=== PATIENT | male | born 1955 | race Caucasian/White ===

== ENCOUNTER 2018-06-22 03:12 | Emergency (ER) | payer OTHER ==
[~2018-06-22] VITALS: Ht 177.8 cm; Wt 117.0 kg
[2018-06-22 03:12] VITALS: BP_SYST 147
--- NOTE | 2018-06-22 03:12 | NUR ---
Patient to ER bed 04 to gown for evaluation. Side rails up.
--- NOTE | 2018-06-22 03:14 | NUR ---
Patient AOx4, presents to ER via ambulance BLS from [facility] for complaint of neck and low back pain 7 x several months. Patient states that the pain was worsend the past few days. Patient states hx of many back surgeries. Denies any recent injury to site. Patient states that Tramadol and Flexeril are medications that he has taken in the past and are effective. No other symptoms or complaints.
--- NOTE | 2018-06-22 03:15 | NUR ---
ER MD Del Real at bedside for medical evaluation.
--- NOTE | 2018-06-22 03:35 | NUR ---
# 22 gauge angiocath placed to NILESH. Use of asceptic technique. Opsite placed over site. Blood return noted. Blood for lab drawn from site. Flushed with 10 cc of normal saline. No evidence of infiltration noted. Patient tolerated well.
[2018-06-22 04:00] LABS: BASOPHILS # (AUTO) 0.1 K/uL (0.0-0.2); BASOPHILS % (AUTO) 0.9 % (0.0-2.0); EOSINOPHILS # (AUTO) 0.2 K/uL (0.0-0.4); EOSINOPHILS % (AUTO) 2.5 % (0.0-4.0); HEMATOCRIT 46.3 % (36-54); HEMOGLOBIN 15.1 g/dL (14.0-18.0); LYMPHOCYTES # (AUTO) 1.7 K/uL (1.0-5.5); LYMPHOCYTES % (AUTO) 18.6 % (20.5-51.5); MEAN CORPUSCULAR HEMOGLOBIN 31 pg (27-31); MEAN CORPUSCULAR HGB CONC 33 % (32-36); MEAN CORPUSCULAR VOLUME 94 fL (79.0-98.0); MONOCYTES # (AUTO) 0.7 K/uL (0.0-1.0); MONOCYTES % (AUTO) 7.2 % (1.7-9.3); NEUTROPHILS # (AUTO) 6.6 K/uL (1.8-7.7); NEUTROPHILS % (AUTO) 70.8 % (40.0-70.0); PLATELET COUNT (AUTO) 254 K/uL (130-430); RED BLOOD CELL COUNT(AUTO) 4.91 MIL/uL (4.2-6.2); RED CELL DISTRIBUTION WIDTH 13.5 % (9.0-15.0); WHITE BLOOD COUNT (AUTO) 9.3 K/uL (4.8-10.8)
[2018-06-22 04:18] LABS: CALCIUM 9.4 mg/dL (8.4-11.0); CREATININE 1.05 mg/dL (0.55-1.30); POTASSIUM 3.8 mmol/L (3.5-5.1)
[2018-06-22] MEDS: KETOROLAC TROMETHAMINE 30 MG VIAL IVP ONE (04:20)
[2018-06-22 04:22] LABS: ALBUMIN 3.4 g/dL (3.4-4.8); TOTAL BILIRUBIN 0.4 mg/dL (0.0-1.0)
[2018-06-22] MEDS: NACL 0.9% 1,000 ML IV ONE (04:22)
--- NOTE | 2018-06-22 05:00 | NUR ---
No adverse reactions noted after medication administration. Will continue to monitor.
[2018-06-22 05:54] VITALS: BP_SYST 140
--- NOTE | 2018-06-22 05:54 | NUR ---
Patient given written and verbal discharge instructions and verbalizes understanding. ER MD discussed with patient the results and treatment provided. Patient in stable condition. ID arm band removed. IV catheter removed intact and dressing applied, no active bleeding. Rx of Tramadol given. Patient educated on pain management and to follow up with PMD. Pain Scale 2/10 tolerable to patient. Opportunity for questions provided and answered. Medication side effect fact sheet provided.
== END 2018-06-22 05:54 | disposition home or self-care (01) ==
LOC: SED 03:12
DX: G89.29 Other chronic pain (principal); M54.2 Cervicalgia; M54.5 Low back pain; E11.9 Type 2 diabetes mellitus without complications; I10 Essential (primary) hypertension; Z88.5 Allergy status to narcotic agent
CPT/HCPCS: 36415; 71045; 72040; 72100; 80053; 82550; 83690; 85025; 96374; 99284; J1885; J7030

== ENCOUNTER 2020-09-18 07:32 | Inpatient (IN) | payer OTHER, MEDICAID ==
[~2020-09-18] VITALS: Ht 177.8 cm; Wt 112.0 kg
[2020-09-18] MEDS ORDERED: ASPIRIN 81 MG TAB.CHEW PO ONE (07:45)
[2020-09-18 07:48] VITALS: BP_SYST 158
[2020-09-18 07:53] LABS: BASOPHILS # (AUTO) 0.1 K/uL (0.0-0.2); BASOPHILS % (AUTO) 0.6 % (0.0-2.0); EOSINOPHILS # (AUTO) 0.3 K/uL (0.0-0.4); EOSINOPHILS % (AUTO) 3.2 % (0.0-4.0); HEMATOCRIT 43.4 % (36-54); HEMOGLOBIN 14.4 g/dL (14.0-18.0); LYMPHOCYTES # (AUTO) 1.8 K/uL (1.0-5.5); LYMPHOCYTES % (AUTO) 19.9 % (20.5-51.5); MEAN CORPUSCULAR HEMOGLOBIN 32 pg (27-31); MEAN CORPUSCULAR HGB CONC 33 % (32-36); MEAN CORPUSCULAR VOLUME 97 fL (79.0-98.0); MONOCYTES # (AUTO) 0.4 K/uL (0.0-1.0); MONOCYTES % (AUTO) 4.7 % (1.7-9.3); NEUTROPHILS # (AUTO) 6.5 K/uL (1.8-7.7); NEUTROPHILS % (AUTO) 71.6 % (40.0-70.0); PLATELET COUNT (AUTO) 258 K/uL (130-430); RED BLOOD CELL COUNT(AUTO) 4.48 MIL/uL (4.2-6.2); WHITE BLOOD COUNT (AUTO) 9.1 K/uL (4.8-10.8)
[2020-09-18] MEDS ORDERED: MAG HYDROX/AL HYDROX/SIMETH 30 ML, LIDOCAINE VISCOUS 2% 15ML (PO) 15 ML, DICYCLOMINE HC... PO ONE ×3 (08:00)
[2020-09-18 08:10] LABS: CALCIUM 8.9 mg/dL (8.4-11.0); CREATININE 0.81 mg/dL (0.55-1.30); POTASSIUM 5.2 mmol/L (3.5-5.1)
[2020-09-18] MEDS ORDERED: MELA10TA PO (08:12)
[2020-09-18] MEDS ORDERED: MONT10TA33 PO (08:12)
[2020-09-18] MEDS ORDERED: SOTA80TA PO (08:12)
[2020-09-18] MEDS ORDERED: LORA10TA7 PO (08:12)
[2020-09-18] MEDS ORDERED: OLME20TA13 PO (08:12)
[2020-09-18] MEDS ORDERED: LIP20 PO (08:12)
[2020-09-18] MEDS ORDERED: GABA-529 PO (08:12)
[2020-09-18 08:16] LABS: ALBUMIN 3.1 g/dL (3.4-4.8); TOTAL BILIRUBIN 0.3 mg/dL (0.0-1.0)
[2020-09-18] MEDS ORDERED: ASPIRIN 81 MG TAB.CHEW ONE (08:21)
[2020-09-18] MEDS ORDERED: DEXTROSE 50% JECT 50 ML DISP.SYRIN IVP ONE (08:45)
[2020-09-18] MEDS ORDERED: CALCIUM GLUCONATE 1 GM/10 ML VIAL IVP ONE (08:45)
[2020-09-18] MEDS ORDERED: INSULIN REGULAR, HUMAN 10 UNITS/0.1 ML INJ IVP ONE (08:45)
[2020-09-18] MEDS ORDERED: NS 500 ML IV ONE (08:45)
[2020-09-18] MEDS ORDERED: SODIUM POLYSTYRENE SULFONATE 15 GM/60 ML UDBTL PO ONE (08:45)
[2020-09-18] MEDS ORDERED: ZOLPIDEM TARTRATE 5 MG TABLET PO PRN (10:00)
[2020-09-18] MEDS ORDERED: CLOPIDOGREL BISULFATE 75 MG TABLET PO ONE (10:00)
[2020-09-18] MEDS ORDERED: LORazepam 2 MG/ML VIAL IVP PRN (10:00)
[2020-09-18] MEDS ORDERED: ACETAMINOPHEN 325 MG TABLET PO PRN (10:00)
[2020-09-18] MEDS ORDERED: NITROGLYCERIN 0.4 MG TAB.SUBL SL PRN (10:00)
[2020-09-18] MEDS ORDERED: ASPIRIN 81 MG TAB.CHEW PO SCH (10:00)
[2020-09-18 11:38] VITALS: BP_SYST 144
[2020-09-18] MEDS: NACL 0.9% 1,000 ML IV SCH (14:25)
[2020-09-18] MEDS: GABAPENTIN 100 MG CAPSULE PO SCH ×2 (14:25→20:56)
[2020-09-18 20:00] VITALS: BP_SYST 155
[2020-09-18] MEDS: SOTALOL HCL 80 MG TABLET PO SCH (20:57)
[2020-09-19 00:21] VITALS: BP_SYST 147
[2020-09-19] MEDS: NACL 0.9% 1,000 ML IV SCH (03:08)
[2020-09-19 08:00] VITALS: BP_SYST 112
[2020-09-19] MEDS: SOTALOL HCL 80 MG TABLET PO SCH (08:05)
[2020-09-19] MEDS: GABAPENTIN 100 MG CAPSULE PO SCH (08:05)
[2020-09-19] MEDS ORDERED: INSULIN LISPRO SLIDING SCALE 100 UNITS/ML VIAL (humaLOG) SUBCUT PRN (08:15)
[2020-09-19] MEDS ORDERED: DEXTROSE 50% JECT 50 ML DISP.SYRIN IVP PRN (08:15)
[2020-09-19] MEDS ORDERED: PRO40 PO (08:16)
[2020-09-19] MEDS ORDERED: GLU850 PO (08:16)
[2020-09-19 08:19] LABS: BASOPHILS % (AUTO) 0.5 % (0.0-2.0); EOSINOPHILS # (AUTO) 0.3 K/uL (0.0-0.4); EOSINOPHILS % (AUTO) 2.5 % (0.0-4.0); HEMATOCRIT 45.4 % (36-54); HEMOGLOBIN 14.8 g/dL (14.0-18.0); LYMPHOCYTES # (AUTO) 1.6 K/uL (1.0-5.5); LYMPHOCYTES % (AUTO) 16.6 % (20.5-51.5); MEAN CORPUSCULAR HEMOGLOBIN 32 pg (27-31); MEAN CORPUSCULAR HGB CONC 33 % (32-36); MEAN CORPUSCULAR VOLUME 98 fL (79.0-98.0); MONOCYTES # (AUTO) 0.5 K/uL (0.0-1.0); MONOCYTES % (AUTO) 5.5 % (1.7-9.3); NEUTROPHILS # (AUTO) 7.4 K/uL (1.8-7.7); NEUTROPHILS % (AUTO) 74.9 % (40.0-70.0); PLATELET COUNT (AUTO) 218 K/uL (130-430); RED BLOOD CELL COUNT(AUTO) 4.65 MIL/uL (4.2-6.2); RED CELL DISTRIBUTION WIDTH 14.1 % (9.0-15.0); WHITE BLOOD COUNT (AUTO) 9.9 K/uL (4.8-10.8)
[2020-09-19 08:37] LABS: ANION GAP 7 (5-15); CALCIUM 8.8 mg/dL (8.4-11.0); CHLORIDE 105 mmol/L (98-107); CREATININE 0.83 mg/dL (0.55-1.30); GLUCOSE 162 mg/dL (70-99); POTASSIUM 4.1 mmol/L (3.5-5.1); SODIUM SERUM 141 mmol/L (136-145); UREA NITROGEN, BLOOD 14 mg/dL (8-21)
[2020-09-19 08:51] LABS: GFR AFRICAN AMERICAN 119 mL/min (>90)
[2020-09-19] MEDS ORDERED: CLOPIDOGREL BISULFATE 75 MG TABLET PO SCH (09:00)
[2020-09-19] MEDS ORDERED: LOSARTAN POTASSIUM 50 MG TABLET (COZAAR) PO SCH (09:00)
[2020-09-19] MEDS ORDERED: MONTELUKAST 10 MG TABLET PO SCH (09:00)
[2020-09-19] MEDS ORDERED: ASPIRIN 81 MG TAB.CHEW PO SCH (09:00)
[2020-09-19] MEDS ORDERED: LORATADINE 10 MG TABLET PO SCH (09:00)
[2020-09-19] MEDS ORDERED: ATORVASTATIN 20 MG TABLET PO SCH ×2 (09:00)
[2020-09-19 09:09] LABS: CHOLESTEROL 147 mg/dL (<200); HDL CHOLESTEROL 45 mg/dL (>45); LDL CHOLESTEROL 93 mg/dL (<100); TRIGLYCERIDES 75 mg/dL (30-150)
[2020-09-19 11:33] VITALS: BP_SYST 154
[2020-09-19 12:36] VITALS: BP_SYST 154
== END 2020-09-19 13:25 | disposition home or self-care (01) | DRG 392 ==
LOC: SED 07:32 → STU 09:53
PROVIDERS: ADMIT General Practice; ATTEND General Practice
DX: K21.9 Gastro-esophageal reflux disease without esophagitis (principal); E66.01 Morbid (severe) obesity due to excess calories; E11.40 Type 2 diabetes mellitus with diabetic neuropathy, unspecified; E78.5 Hyperlipidemia, unspecified; I10 Essential (primary) hypertension; G40.909 Epilepsy, unspecified, not intractable, without status epilepticus; J45.909 Unspecified asthma, uncomplicated; Z20.822 Contact with and (suspected) exposure to COVID-19; F31.9 Bipolar disorder, unspecified; Z88.5 Allergy status to narcotic agent; Z88.2 Allergy status to sulfonamides; Z79.899 Other long term (current) drug therapy; Z79.4 Long term (current) use of insulin
CPT/HCPCS: 36415; 71045; 80048; 80053; 80061; 82962; 83036; 83735; 83880; 84132; 84484; 85025; 85379; 93005; 93306; 96361; 96374; 96375; 99291; G0378; J0610; J1815; J2001

== ENCOUNTER 2021-08-25 10:06 | Inpatient (IN) | payer OTHER, MEDICAID ==
[~2021-08-25] VITALS: Ht 175.3 cm; Wt 105.2 kg
[~2021-08-25 10:06] MED LIST: GABA-529 PO; GLU850 PO; LIP20 PO; LORA10TA7 PO; MELA10TA PO; MONT-40 PO; OLME20TA13 PO; PRO40 PO; SOTA80TA PO
[2021-08-25 10:45] VITALS: BP_SYST 144
[2021-08-25] MEDS ORDERED: ACETAMINOPHEN 325 MG TABLET PO ONE (11:30)
[2021-08-25 11:45] LABS: BASOPHILS # (AUTO) 0.1 K/uL (0.0-0.2); BASOPHILS % (AUTO) 0.7 % (0.0-2.0); EOSINOPHILS # (AUTO) 0.4 K/uL (0.0-0.4); EOSINOPHILS % (AUTO) 3.5 % (0.0-4.0); HEMATOCRIT 41.5 % (36-54); HEMOGLOBIN 13.9 g/dL (14.0-18.0); LYMPHOCYTES # (AUTO) 1.6 K/uL (1.0-5.5); LYMPHOCYTES % (AUTO) 15.5 % (20.5-51.5); MEAN CORPUSCULAR HEMOGLOBIN 31 pg (27-31); MEAN CORPUSCULAR HGB CONC 34 % (32-36); MEAN CORPUSCULAR VOLUME 93 fL (79.0-98.0); MONOCYTES # (AUTO) 0.6 K/uL (0.0-1.0); MONOCYTES % (AUTO) 5.9 % (1.7-9.3); NEUTROPHILS # (AUTO) 7.6 K/uL (1.8-7.7); NEUTROPHILS % (AUTO) 74.4 % (40.0-70.0); PLATELET COUNT (AUTO) 234 K/uL (130-430); RED BLOOD CELL COUNT(AUTO) 4.48 MIL/uL (4.2-6.2); RED CELL DISTRIBUTION WIDTH 13.8 % (9.0-15.0); WHITE BLOOD COUNT (AUTO) 10.2 K/uL (4.8-10.8)
[2021-08-25 11:53] LABS: ANION GAP 8 (5-15); CALCIUM 8.3 mg/dL (8.4-11.0); CHLORIDE 100 mmol/L (98-107); CREATININE 0.85 mg/dL (0.55-1.30); GLUCOSE 138 mg/dL (70-99); POTASSIUM 4.1 mmol/L (3.5-5.1); SODIUM SERUM 134 mmol/L (136-145); UREA NITROGEN, BLOOD 15 mg/dL (8-21)
[2021-08-25 11:57] LABS: GFR AFRICAN AMERICAN 116 mL/min (>90)
[2021-08-25 12:05] LABS: ALANINE AMINOTRANSFERASE 38 U/L (12-78); ALBUMIN 3.2 g/dL (3.4-4.8); ASPARTATE AMINOTRANSFERASE 25 U/L (10-37); TOTAL BILIRUBIN 0.2 mg/dL (0.0-1.0)
--- NOTE | 2021-08-25 12:51 | NUR ---
PT RESTING COMFORTABLY. C SPINE PRECAUTIONS MAINTAINED, C COLLAR REMAINS IN PLACE. VSS. RESP EVEN AND UNLABORED. DENIES PAIN AT THIS TIME. AWAITING RESULTS. WILL CONT TO MONITOR
[2021-08-25] MEDS ORDERED: MECLIZINE HCL 25 MG TABLET (ANITVERT) PO ONE (14:00)
--- NOTE | 2021-08-25 14:52 | NUR ---
COVID SAMPLE SENT TO LAB 14:48.
--- NOTE | 2021-08-25 15:25 | NUR ---
PT IN BED RESTING COMFORTABLY. DENIES PAIN. RESP EVEN AND UNLABORED. O2 SAT 89-91%, PLACED ON 2L VIA NC. SATS IMPROVED TO 94%. VS OTHERWISE STABLE. AWAITING TELE BED. WILL CONT TO MONITOR
[2021-08-25] MEDS ORDERED: LORazepam 2 MG/ML VIAL IVP PRN (16:30)
[2021-08-25] MEDS ORDERED: MAGNESIUM SULFATE 50 ML IV PRN (16:30)
[2021-08-25] MEDS ORDERED: DEXTROSE 50% JECT 50 ML DISP.SYRIN IVP PRN (16:30)
[2021-08-25] MEDS ORDERED: ACETAMINOPHEN 325 MG TABLET PO PRN (16:30)
[2021-08-25] MEDS ORDERED: MUPIROCIN 2% TOPICAL OINTMENT 22 GM NS PRN (16:30)
[2021-08-25] MEDS ORDERED: POTASSIUM CHLORIDE 20 MEQ TAB.PRT.SR PO PRN (16:30)
--- NOTE | 2021-08-25 17:04 | NUR ---
PT RESTING COMFORTABLY. NO DISTRESS NOTED. NO CHANGES IN STATUS. AWAITING TELE BED. WILL CONT TO MONITOR
[2021-08-25] MEDS: NACL 0.9% 1,000 ML IV SCH (18:56)
--- NOTE | 2021-08-25 19:45 | NUR ---
ASSUMED CARE OF PT AT THIS TIME. PT RESTING, A&OX4, RR EVEN AND UNLABORED. VSS. PT DENIES ANY PAIN AT THIS TIME. AWAITING BED ASSIGNMENT.
--- NOTE | 2021-08-25 21:00 | NUR ---
REPORT TO DEV RAI WITH FULL RETURNED VERBAL UNDERSTANDING. PT TAKEN VIA ADA WITH TELE. NO S/S OF DISTRESS NOTED.
[2021-08-25 21:10] VITALS: BP_SYST 147
[2021-08-25] MEDS: GABAPENTIN 100 MG CAPSULE PO SCH (21:22)
[2021-08-25] MEDS: HEPARIN SODIUM,PORCINE 5,000 UNITS/ML VIAL SUBCUT SCH (21:25)
[2021-08-25 21:30] VITALS: BP_SYST 147
[2021-08-26] MEDS: ONDANSETRON HCL 4 MG/2 ML VIAL IVP PRN ×3 (04:29→23:21)
[2021-08-26] MEDS: ZOLPIDEM TARTRATE 5 MG TABLET PO PRN ×2 (04:49→23:21)
[2021-08-26 04:53] VITALS: BP_SYST 144
[2021-08-26] MEDS: NACL 0.9% 1,000 ML IV SCH ×2 (06:00→17:30)
[2021-08-26 06:18] LABS: BASOPHILS # (AUTO) 0.1 K/uL (0.0-0.2); BASOPHILS % (AUTO) 0.7 % (0.0-2.0); EOSINOPHILS # (AUTO) 0.3 K/uL (0.0-0.4); EOSINOPHILS % (AUTO) 3.3 % (0.0-4.0); HEMOGLOBIN 14.2 g/dL (14.0-18.0); LYMPHOCYTES # (AUTO) 2.1 K/uL (1.0-5.5); LYMPHOCYTES % (AUTO) 22.5 % (20.5-51.5); MEAN CORPUSCULAR HEMOGLOBIN 31 pg (27-31); MEAN CORPUSCULAR HGB CONC 34 % (32-36); MEAN CORPUSCULAR VOLUME 93 fL (79.0-98.0); MONOCYTES # (AUTO) 0.5 K/uL (0.0-1.0); MONOCYTES % (AUTO) 5.8 % (1.7-9.3); NEUTROPHILS # (AUTO) 6.3 K/uL (1.8-7.7); NEUTROPHILS % (AUTO) 67.7 % (40.0-70.0); PLATELET COUNT (AUTO) 251 K/uL (130-430); RED BLOOD CELL COUNT(AUTO) 4.53 MIL/uL (4.2-6.2); RED CELL DISTRIBUTION WIDTH 14.3 % (9.0-15.0); WHITE BLOOD COUNT (AUTO) 9.4 K/uL (4.8-10.8)
[2021-08-26 06:44] LABS: CALCIUM 8.1 mg/dL (8.4-11.0); CREATININE 0.82 mg/dL (0.55-1.30); POTASSIUM 3.9 mmol/L (3.5-5.1)
--- NOTE | 2021-08-26 07:48 | NUR ---
CONSULT NEUROLOGY FALL Yumiko MARTÍNEZ SENT TEXT MESSAGE TO DR OJEDA
[2021-08-26] MEDS ORDERED: LOPE-178 PO (07:55)
[2021-08-26] MEDS ORDERED: TAMS-11 PO (07:55)
[2021-08-26] MEDS ORDERED: HYDR12.55 PO (07:55)
[2021-08-26] MEDS ORDERED: TRAM50TA2 PO (07:55)
[2021-08-26] MEDS ORDERED: BACL5TAB PO (07:55)
[2021-08-26 08:00] VITALS: BP_SYST 153
[2021-08-26] MEDS ORDERED: OLMESARTAN MEDOXOMIL 20 MG TABLET PO SCH (09:00)
[2021-08-26] MEDS: LOSARTAN POTASSIUM 50 MG TABLET (COZAAR) PO SCH (10:22)
[2021-08-26] MEDS: GABAPENTIN 100 MG CAPSULE PO SCH ×2 (10:23→15:00)
[2021-08-26] MEDS: HEPARIN SODIUM,PORCINE 5,000 UNITS/ML VIAL SUBCUT SCH ×2 (10:29→21:13)
[2021-08-26] MEDS ORDERED: MONTELUKAST 10 MG TABLET PO ONE (10:45)
[2021-08-26] MEDS: INSULIN LISPRO SLIDING SCALE 100 UNITS/ML VIAL (humaLOG) SUBCUT PRN (21:18)
[2021-08-26 21:21] VITALS: BP_SYST 143
[2021-08-26] MEDS: traMADol HCL HCL 50 MG TABLET (ULTRAM) PO PRN (23:22)
[2021-08-27] MEDS: NACL 0.9% 1,000 ML IV SCH ×2 (02:16→16:05)
[2021-08-27 06:15] LABS: BASOPHILS # (AUTO) 0.1 K/uL (0.0-0.2); EOSINOPHILS # (AUTO) 0.3 K/uL (0.0-0.4); HEMATOCRIT 41.4 % (36-54); HEMOGLOBIN 13.7 g/dL (14.0-18.0); LYMPHOCYTES # (AUTO) 1.9 K/uL (1.0-5.5); LYMPHOCYTES % (AUTO) 22.4 % (20.5-51.5); MEAN CORPUSCULAR HEMOGLOBIN 31 pg (27-31); MEAN CORPUSCULAR HGB CONC 33 % (32-36); MEAN CORPUSCULAR VOLUME 93 fL (79.0-98.0); MONOCYTES # (AUTO) 0.6 K/uL (0.0-1.0); NEUTROPHILS # (AUTO) 5.6 K/uL (1.8-7.7); NEUTROPHILS % (AUTO) 66.6 % (40.0-70.0); PLATELET COUNT (AUTO) 244 K/uL (130-430); RED BLOOD CELL COUNT(AUTO) 4.43 MIL/uL (4.2-6.2); WHITE BLOOD COUNT (AUTO) 8.4 K/uL (4.8-10.8)
[2021-08-27] MEDS: INSULIN LISPRO SLIDING SCALE 100 UNITS/ML VIAL (humaLOG) SUBCUT PRN ×2 (06:35→11:46)
[2021-08-27 07:05] LABS: CALCIUM 7.7 mg/dL (8.4-11.0); CREATININE 0.87 mg/dL (0.55-1.30); POTASSIUM 4.1 mmol/L (3.5-5.1)
[2021-08-27 08:00] VITALS: BP_SYST 154
--- NOTE | 2021-08-27 08:00 | NUR ---
Initial Notes Patient is awake, alert, and oriented. Patient is sitting in bed. Breathing is even and nn labored. No complaints of pain. No distress noted. Patient is on 2L O2 via nasal cannula, breathing is even and non labored. SPo2 is 95%. Patient aware to call for assistance. Call light within reach and safety precautions in place, bed alarm on.
[2021-08-27] MEDS: MONTELUKAST 10 MG TABLET PO SCH (09:04)
[2021-08-27] MEDS: LOSARTAN POTASSIUM 50 MG TABLET (COZAAR) PO SCH (09:05)
[2021-08-27] MEDS: HEPARIN SODIUM,PORCINE 5,000 UNITS/ML VIAL SUBCUT SCH ×2 (09:07→21:15)
[2021-08-27 09:42] LABS: BILIRUBIN,URINE NEGATIVE (NEGATIVE); BLOOD, URINE NEGATIVE (NEGATIVE); CLARITY/URINE CLEAR (CLEAR); COLOR,URINE YELLOW (YELLOW); GLUCOSE,URINE NEGATIVE (NEGATIVE); KETONES,URINE NEGATIVE (NEGATIVE); LEUKOCYTE ESTERASE ,URINE NEGATIVE (NEGATIVE); NITRITE, URINE NEGATIVE (NEGATIVE); PH,URINE 6.5 (5.0-8.0); PROTEIN URINE NEGATIVE (NEGATIVE)
[2021-08-27 12:00] VITALS: BP_SYST 151
--- NOTE | 2021-08-27 12:00 | NUR ---
Notes Cleaned, changed, and repositioned patient. Took photos of wounds, treatment done. Patient admits to pain rates 4/10. Pain medication given. Will continue to monitor. No s/s of distress, no SOB. Patient's Spo2 is at 96% on 2 L o2 via nasal cannula. Breathing is even and non labored. Safety precautions in place and call light within reach.
[2021-08-27] MEDS: traMADol HCL HCL 50 MG TABLET (ULTRAM) PO PRN (12:14)
[2021-08-27] MEDS: DOCUSATE SODIUM 100 MG CAPSULE PO PRN (12:14)
[2021-08-27 16:00] VITALS: BP_SYST 151
--- NOTE | 2021-08-27 16:03 | NUR ---
Notes Patient is awake. Does not complain of any pain. No SOB, SPO2 is 95% on 2L O2 via nasal cannula. No distress noted. Safety Precautions in place and call light within reach.
--- NOTE | 2021-08-27 16:14 | NUR ---
Dietitian Recommendations * CCHO, cardiac diet LP, RD Please refer to Nutrition Assessment for details. Addendum: 08/27/21 at [address] Amended: Links added.
--- NOTE | 2021-08-27 19:28 | NUR ---
CLOSING NOTE PATIENT HAS FINISHED DINNER, NO COMPLAINTS OF PAIN. NO DISTRESS NOTED. NO SOB. PATIENT HAS BEEN REPOSITIONED. GAVE REPORT TO KHADRA. ALL SAFETY PRECAUTIONS ARE IN PLACE AND CALL LIGHT WITHIN REACH.
--- NOTE | 2021-08-27 19:30 | NUR ---
PT IS SITTING UP IN BED WATCHING TV. NO APPARENT DISTRESS NOTED AT THIS TIME. PT ASKED TO BE READJUSTED, DAY SHIFT NURSE ASSISTED. FALL AND SAFETY PRECAUTIONS ARE IN PLACE. CALL LIGHT WITHIN REACH, PT EDUCATED ON HOW TO USE IT. IV FLUIDS RUNNING ORDERED
[2021-08-27 20:00] VITALS: BP_SYST 151
--- NOTE | 2021-08-27 21:15 | NUR ---
CALLED [facility] FAUZIA CALLED PTS HOME TO FIND OUT WHAT MEDS THE PT TAKES AT HOME WHEN HAVING AN "ALLERGIC REACTION" SPOKE WITH BERNARDINO [phone]
[2021-08-27] MEDS: ZOLPIDEM TARTRATE 5 MG TABLET PO PRN (21:19)
--- NOTE | 2021-08-27 21:25 | NUR ---
SPOKE WITH DR LIU INFORMED DR PT STATED HES HAVING AN ALLERGIC REACTION. DR HOLLOWAYED THE CONTINUATION OF PTS HOME MEDS
[2021-08-27] MEDS ORDERED: ALBUTEROL SULFATE 0.083% 2.5 MG/3 ML VIAL.NEB INH PRN (21:45)
[2021-08-27] MEDS: ONDANSETRON HCL 4 MG/2 ML VIAL IVP PRN (22:17)
[2021-08-27 22:27] VITALS: BP_SYST 100
[2021-08-28] MEDS: traMADol HCL HCL 50 MG TABLET (ULTRAM) PO PRN ×2 (03:00→21:12)
[2021-08-28] MEDS: NACL 0.9% 1,000 ML IV SCH ×2 (03:05→15:43)
[2021-08-28 05:54] LABS: BASOPHILS # (AUTO) 0.1 K/uL (0.0-0.2); BASOPHILS % (AUTO) 0.7 % (0.0-2.0); EOSINOPHILS # (AUTO) 0.3 K/uL (0.0-0.4); EOSINOPHILS % (AUTO) 4.1 % (0.0-4.0); HEMATOCRIT 39.4 % (36-54); HEMOGLOBIN 13.1 g/dL (14.0-18.0); LYMPHOCYTES # (AUTO) 1.9 K/uL (1.0-5.5); LYMPHOCYTES % (AUTO) 22.7 % (20.5-51.5); MEAN CORPUSCULAR HEMOGLOBIN 31 pg (27-31); MEAN CORPUSCULAR HGB CONC 33 % (32-36); MEAN CORPUSCULAR VOLUME 94 fL (79.0-98.0); MONOCYTES # (AUTO) 0.5 K/uL (0.0-1.0); MONOCYTES % (AUTO) 5.8 % (1.7-9.3); NEUTROPHILS # (AUTO) 5.7 K/uL (1.8-7.7); NEUTROPHILS % (AUTO) 66.7 % (40.0-70.0); PLATELET COUNT (AUTO) 243 K/uL (130-430); RED BLOOD CELL COUNT(AUTO) 4.22 MIL/uL (4.2-6.2); RED CELL DISTRIBUTION WIDTH 14.1 % (9.0-15.0); WHITE BLOOD COUNT (AUTO) 8.5 K/uL (4.8-10.8)
[2021-08-28 06:12] LABS: CALCIUM 7.6 mg/dL (8.4-11.0); CREATININE 0.71 mg/dL (0.55-1.30); POTASSIUM 4.2 mmol/L (3.5-5.1)
[2021-08-28 08:00] VITALS: BP_SYST 160
--- NOTE | 2021-08-28 08:00 | NUR ---
OPENING NOTE Patient resting in bed, AxO x4. No sign of distress and patient denies pain. Patient states that his neck is tender but refuses pain medication. IV is clean, dry, intact, and running prescribed fluids. Patient able to stand and ambulate to the bedside commode with minimal assist. Nasal cannula in place on 2L, oxygen saturation 94%. All needs met at this time and safety checks made.
[2021-08-28] MEDS: LOSARTAN POTASSIUM 50 MG TABLET (COZAAR) PO SCH (08:48)
[2021-08-28] MEDS: MONTELUKAST 10 MG TABLET PO SCH (08:48)
[2021-08-28] MEDS: HEPARIN SODIUM,PORCINE 5,000 UNITS/ML VIAL SUBCUT SCH ×2 (08:51→21:12)
--- NOTE | 2021-08-28 09:42 | NUR ---
Discharge Planning: DCP faxed pt referral to [facility] F#[phone] DCP to follow up Addendum: 08/28/21 at 1145 by Rose Munoz DP DCP faxed pt referral to [facility] P#[phone], [facility] P#[phone] contracted facilities with insurance.
[2021-08-28] MEDS: DOCUSATE SODIUM 100 MG CAPSULE PO PRN ×2 (11:28→21:13)
[2021-08-28] MEDS: INSULIN LISPRO SLIDING SCALE 100 UNITS/ML VIAL (humaLOG) SUBCUT PRN ×2 (11:29→21:12)
[2021-08-28 16:00] VITALS: BP_SYST 159
--- NOTE | 2021-08-28 18:32 | NUR ---
PHYSICAL THERAPY CO-SIGN The Physical Therapy Progress Notes documented by Operations And Maintenance Technican have been reviewed. Reviewed/Co-Signed by: Kiana Robb PT Documentation Done by:SANTIAGO DASILVA SUPERVISOR QUILTING Addendum: 08/28/21 at 1833 by Kiana Robb PT Amended: Links added.
--- NOTE | 2021-08-28 18:52 | NUR ---
CLOSING NOTE Patient in bed resting after eating dinner. No sign of distress, patient denies pain. Patient complained of some nausea after eating and dry heaved but did not produce any vomit. Patient states he is no longer feeling nauseas. IV is clean, dry, intact, and running prescribed fluids. Patient is up to date on his plan of care. All needs met and safety checks made. Will endorse to shift supervisor nurse.
--- NOTE | 2021-08-28 19:25 | NUR ---
OPENING NOTE PT IS SITTING UP IN BED WATCHING TV. NO APPARENT DISTRESS NOTED AT THIS TIME. FALL AND SAFETY PRECAUTIONS ARE IN PLACE. CALL LIGHT WITHIN REACH, PT EDUCATED ON HOW TO USE IT. IV FLUIDS RUNNING ORDERED
--- NOTE | 2021-08-28 19:50 | NUR ---
PT THROWING UP PT STATED HE WASN'T FEELING WELL. PT PROCEEDED TO GRAB A BASIN AND THREW UP. APROX 1,300ML OF VOMITUS. ZZOFRAN WAS GIVEN
[2021-08-28] MEDS: ONDANSETRON HCL 4 MG/2 ML VIAL IVP PRN (19:57)
[2021-08-28 20:00] VITALS: BP_SYST 151
[2021-08-28] MEDS: ZOLPIDEM TARTRATE 5 MG TABLET PO PRN (21:13)
[2021-08-29] VITALS: BP_SYST 150
[2021-08-29 06:20] LABS: BASOPHILS # (AUTO) 0.1 K/uL (0.0-0.2); BASOPHILS % (AUTO) 0.8 % (0.0-2.0); EOSINOPHILS # (AUTO) 0.3 K/uL (0.0-0.4); EOSINOPHILS % (AUTO) 3.6 % (0.0-4.0); HEMATOCRIT 39.3 % (36-54); LYMPHOCYTES # (AUTO) 1.8 K/uL (1.0-5.5); MEAN CORPUSCULAR HEMOGLOBIN 31 pg (27-31); MEAN CORPUSCULAR HGB CONC 33 % (32-36); MEAN CORPUSCULAR VOLUME 93 fL (79.0-98.0); MONOCYTES # (AUTO) 0.5 K/uL (0.0-1.0); NEUTROPHILS # (AUTO) 6.2 K/uL (1.8-7.7); NEUTROPHILS % (AUTO) 69.6 % (40.0-70.0); PLATELET COUNT (AUTO) 269 K/uL (130-430); RED BLOOD CELL COUNT(AUTO) 4.21 MIL/uL (4.2-6.2); RED CELL DISTRIBUTION WIDTH 13.8 % (9.0-15.0); WHITE BLOOD COUNT (AUTO) 8.9 K/uL (4.8-10.8)
[2021-08-29 06:27] LABS: CALCIUM 7.7 mg/dL (8.4-11.0); CREATININE 0.7 mg/dL (0.55-1.30); POTASSIUM 3.9 mmol/L (3.5-5.1)
--- NOTE | 2021-08-29 07:02 | NUR ---
CLOSING NOTE PT IS SEMI FOWLERS WITH EYES CLOSED. NO APPARENT DISTRESS NOTED AT THIS TIME. BED IS IN LOWEST POSITION WITH FALL AND SAFETY PRECAUTIONS IN PLACE. IV FLUIDS RUNNING ORDERED
--- NOTE | 2021-08-29 07:10 | NUR ---
OPENING NOTE RECEIVED SBAR FROM NIGHT RN, PATIENT IN BED, RESPIRATIONS EVEN, NON LABORED BED IN LOW AND LOCKED POSITION, CALL LIGHT WITHIN REACH, BED ALARM ON
[2021-08-29 08:00] VITALS: BP_SYST 169
[2021-08-29] MEDS: NACL 0.9% 1,000 ML IV SCH (08:00)
[2021-08-29] MEDS: MONTELUKAST 10 MG TABLET PO SCH (08:03)
[2021-08-29] MEDS: LOSARTAN POTASSIUM 50 MG TABLET (COZAAR) PO SCH (08:04)
[2021-08-29] MEDS: HEPARIN SODIUM,PORCINE 5,000 UNITS/ML VIAL SUBCUT SCH (08:05)
--- NOTE | 2021-08-29 09:15 | NUR ---
nurse note assisted patient with urinal, voided 50ml
[2021-08-29] MEDS: INSULIN LISPRO SLIDING SCALE 100 UNITS/ML VIAL (humaLOG) SUBCUT PRN (11:13)
--- NOTE | 2021-08-29 11:46 | NUR ---
wound care provided wound care, see MST shift assessment
[2021-08-29 12:00] VITALS: BP_SYST 151
--- NOTE | 2021-08-29 14:35 | NUR ---
MD DR SAENZ BEDSIDE EXAMINING PATIENT
--- NOTE | 2021-08-29 15:01 | NUR ---
Discharge Planning: MARIBETH arranged transport with [facility] [phone] [facility] P/U btw 4:30pm and 5:00pm to [facility] P#[phone] 6A. [facility] made CM and nurse aware, pt packet taken to nurse station. Addendum: 08/29/21 at 1506 by Rose Munoz DP transport [place]#[id number]
[2021-08-29 16:00] VITALS: BP_SYST 153
[2021-08-29 16:16] VITALS: BP_SYST 153
--- NOTE | 2021-08-29 16:30 | NUR ---
Nurse note report given to Aliza at [facility]
--- NOTE | 2021-08-29 16:35 | NUR ---
notification attempted to reach both Caryn and Tej Tyler x2 regarding transfer to [facility]. NO answer on either phone x2
--- NOTE | 2021-08-29 16:50 | NUR ---
nurse note spoke with Tej and informed of transfer to [facility]. Answered all questions, Tej verbalized understanding
--- NOTE | 2021-08-29 18:55 | NUR ---
informed informed Dr. Brown of BP for transfer, 159/94. Per Dr. Brown no new orders. ok for transfer, have PCP follow up
--- NOTE | 2021-08-29 19:10 | NUR ---
PT TRANSFERRED Report given to Aliza at [facility]. Transfer packet with Transfer Orders and Medication Reconciliation form given to EMT with report. Exitcare provided. [facility] ID band removed, replaced with ID band with pt's name and . IV catheter removed, intact and dressing applied, no active bleeding. All belongings sent with patient. Patient left floor via gurney escorted by EMT in no distress.
--- NOTE | 2021-09-01 08:31 | NUR ---
PHYSICAL THERAPY CO-SIGN The Physical Therapy Progress Notes documented by Flower Stripper have been reviewed. Reviewed/Co-Signed by: Antwan Christensen Documentation Done by: KAYLA DASILVA PTA Addendum: 09/01/21 at 0832 by Antwan Christensen PT Amended: Links added.
== END 2021-08-29 19:10 | DRG 74 ==
LOC: SED 10:06 → STU 16:14
PROVIDERS: ADMIT General Practice; ATTEND General Practice
DX: G90.9 Disorder of the autonomic nervous system, unspecified (principal); E44.1 Mild protein-calorie malnutrition; S09.90XA Unspecified injury of head, initial encounter; G80.9 Cerebral palsy, unspecified; Z20.822 Contact with and (suspected) exposure to COVID-19; E11.43 Type 2 diabetes mellitus with diabetic autonomic (poly)neuropathy; E78.00 Pure hypercholesterolemia, unspecified; E78.5 Hyperlipidemia, unspecified; G40.909 Epilepsy, unspecified, not intractable, without status epilepticus; W18.39XA Other fall on same level, initial encounter; K21.9 Gastro-esophageal reflux disease without esophagitis; S13.4XXA Sprain of ligaments of cervical spine, initial encounter; S80.02XA Contusion of left knee, initial encounter; S80.01XA Contusion of right knee, initial encounter; I10 Essential (primary) hypertension; Z68.34 Body mass index [BMI] 34.0-34.9, adult; Z79.899 Other long term (current) drug therapy; Y93.89 Activity, other specified; Y92.89 Other specified places as the place of occurrence of the external cause; Y99.8 Other external cause status; Z88.5 Allergy status to narcotic agent; Z88.2 Allergy status to sulfonamides
CPT/HCPCS: 36415; 70450-TC; 71045; 72125-TC; 73560-TC; 76376; 80048; 80053; 81003; 82962; 83735; 83880; 84484; 85025; 93005; 94640; 94760; 97110-GP; 97116-GP; 97530-GP; 99285; G0378; J1644; J2060; J2405; J7613; J8597